=== PATIENT | male | born 1945 | race Caucasian/White ===

== ENCOUNTER → 2021-12-14 12:14 | Outpatient (CLI) | payer OTHER, SELFPAY ==
--- NOTE | 2021-12-14 | CA_ITS ---
APPROVED REPORT EXAM: Comprehensive 2D, Doppler, and color-flow Echocardiogram Supervisor Speech: Valerie Chapman CRT Ht: 5 ft 11 in Wt: 195lbs BSA: 2.09 BP: 140/78 mmHg Indications: Shortness of Breath, Palpitations, Fatigue, Peripheral Edema, CAD, Hyperlipidemia, Hypertension/HDD 2D Dimensions Aortic Root 2.08 cm M-Mode Dimensions RVDd 2.94 cm (0.9-2.6) LA Diam 3.89 cm (1.9-4.0) LVDd 4.44 cm (3.5-5.7) Ao Diam 3.46 cm (2.0-3.7) LVDs 2.11 cm (3.5-5.7) IVSd 2.33 cm (0.6-1.1) PWd 0.97 cm (0.6-1.1) EF (Teich) 83.70% FS 52.50% EDV (Teich) 89.60 mL TAPSE 2.25 (<1.7) ESV (Teich) 14.60 mL LV Diastology E Decel Time 280.00 (160-240 msec) E/A Ratio 0.83 MED E' 4.70 (< 7 cm/sec) MED A' 9.20 cm/s E'/MED E' Ratio 13.49 (>14) LAT E' 8.90 (<10 cm/sec) LAT A' 11.80 cm/s E/LAT E' Ratio 7.12 (>14) Aortic Valve AO Peak GR. 13.40 mmHg Mitral Valve MV A Velocity 76.00 (40-130 cm/s) E/A Ratio 0.83 MV Decel. Time 280.00 (160-240 ms) Pulmonary Valve PV Peak Velocity 181.00 (50-150 cm/s) Tricuspid Valve TR P. Velocity 263.00 cm/s RAP Estimate 10.00 mmHg RVSP 37.80 mmHg Left Ventricle Left atrium is mildly enlarged, left ventricle is normal size, mild concentric left ventricular hypertrophy, estimated ejection fraction 55% with no regional wall motion abnormality, grade 1 diastolic dysfunction seen without tissue Doppler evidence of raise left atrial pressure. Right Ventricle Right atrium and right ventricle are mildly enlarged with normal contractility. Aortic Valve Aortic valve is minimally thickened and fibrosed there is no aortic stenosis or aortic insufficiency. Mitral Valve Mitral valve grossly normal, there is trace mitral regurgitation. Tricuspid Valve Tricuspid valve grossly normal, there is trace tricuspid regurgitation, tricuspid regurgitation jet velocity is inadequate for calculation of the right ventricular systolic pressure. Pulmonic Valve Pulmonic valve is poorly visualized. Great Vessels Aortic root is normal size. Inferior vena cava is poorly visualized. Pericardium No significant pericardial effusion noted. Conclusion 1. Mild biatrial enlargement, normal left ventricular size, mild concentric left ventricular hypertrophy, estimated ejection fraction 55% with no regional wall motion abnormality, grade 1 diastolic dysfunction seen without tissue Doppler evidence of raise left atrial pressure. 2. Mildly enlarged right ventricle with normal contractility. 3. Trace mitral and tricuspid regurgitation. 4. No significant pericardial effusion noted. 5. Inferior vena cava is poorly visualized. Electronically signed by : Erik Segovia MD 12/15/2021 06:32:08
== END ==
PROVIDERS: PCP General Practice; Visit Provider Radiology Diagnostic Radiology
DX: I25.10 Atherosclerotic heart disease of native coronary artery without angina pectoris (principal)
CPT/HCPCS: 93306